=== PATIENT | male | born 1995 | race African-American/Black ===

== ENCOUNTER 2016-07-12 23:39 | Emergency (ER) | payer BC ==
[~2016-07-12] VITALS: Ht 170.2 cm; Wt 80.5 kg
[2016-07-12 23:43] VITALS: TEMP 98.8
[2016-07-13] MEDS ORDERED: NORCO 325 MG-51 TAB PO (00:53)
[2016-07-13 01:23] VITALS: BP 132/78; PULSE 69
== END 2016-07-13 01:25 | disposition home or self-care (01) ==
LOC: COL.ER 23:39
DX: T23.292A Burn of second degree of multiple sites of left wrist and hand, initial encounter (principal); Z23 Encounter for immunization; T23.222A Burn of second degree of single left finger (nail) except thumb, initial encounter; X10.2XXA Contact with fats and cooking oils, initial encounter; Y92.000 Kitchen of unspecified non-institutional (private) residence as the place of occurrence of the external cause; J45.909 Unspecified asthma, uncomplicated

== ENCOUNTER → 2016-08-01 | Outpatient (CLI) | payer BC ==
[~2016-08-01] MED LIST: NORCO 325 MG-51 TAB PO
== END ==
LOC: COL.CARD 10:25
DX: R00.2 Palpitations (principal)

== ENCOUNTER 2017-09-29 01:20 | Emergency (ER) | payer SELFPAY ==
[~2017-09-29] VITALS: Ht 170.2 cm; Wt 75.0 kg
[2017-09-29 01:38] VITALS: TEMP 98.7
[2017-09-29] MEDS ORDERED: ATIVAN 1MG T1 MG/TAB PO (02:45)
[2017-09-29 02:58] VITALS: BP 121/74; PULSE 77
== END 2017-09-29 03:09 | disposition home or self-care (01) ==
LOC: COL.ER 01:20
DX: F41.9 Anxiety disorder, unspecified (principal)